=== PATIENT | male | born 1970 | race Caucasian/White ===

== ENCOUNTER 2021-05-08 11:31 | Emergency (ER) | payer SELFPAY ==
--- NOTE | 2021-05-08 11:51 | Emergency Department Report ---
ED Neuro Deficit HPI - General Chief Complaint: Neuro Symptoms/Deficit Stated Complaint: Numbness in left arm, bilat legs Time Seen by Provider: 05/08/21 11:46 Source: patient, EMS Mode of arrival: Stretcher Limitations: No Limitations - History of Present Illness Initial Comments: 51-year-old male with a past medical history of hypertension and smoking presents to the hospital with neurologic symptoms. 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 Patient denies any shortness of breath, nausea, vomiting, diaphoresis, or headache. Patient initially thought that he had numbness secondary to his position while driving. 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 He denies chest pressure. He complains of persistent numbness at this time. He denies pleuritic chest pain, calf tenderness, or leg edema. Patient has steady gait with a negative Spiro score as per EMS. Patient admits to drinking 3 beers yesterday but denies being an alcoholic or drinking alcohol daily. Patient is not currently on hypertensive medication and instead is making dietary changes - Related Data Home Medications: Previous Rx's Medication Instructions Recorded Last Taken Type Aspirin EC [Ecotrin] 325 mg PO QDAY #30 tablet. 05/08/21 Unknown Rx Cyanocobalamin (Vitamin B-12) 500 mcg PO DAILY #30 05/08/21 Unknown Rx [Vitamin B-12] Folic Acid 1 mg PO DAILY #30 05/08/21 Unknown Rx Thiamine [Vitamin B-1] 100 mg PO QDAY #30 tablet 05/08/21 Unknown Rx Allergies/Adverse Reactions: Allergies Allergy/AdvReac Type Severity Reaction Status Date / Time No Known Allergies Allergy Verified 05/08/21 15:20 ED Review of Systems ROS: Stated complaint: Numbness in left arm, bilat legs Other details as noted in HPI Comment: All other systems reviewed and negative ED Past Medical Hx - Past Medical History Previous Medical History?: Yes Hx Hypertension: Yes - Surgical History Additional Surgical History: gastric bypass - Medications Home Medications: Home Medications Medication Instructions Recorded Confirmed Last Taken Type Aspirin EC [Ecotrin] 325 mg PO QDAY #30 tablet. 05/08/21 Unknown Rx Cyanocobalamin (Vitamin B-12) 500 mcg PO DAILY #30 05/08/21 Unknown Rx [Vitamin B-12] Folic Acid 1 mg PO DAILY #30 05/08/21 Unknown Rx Thiamine [Vitamin B-1] 100 mg PO QDAY #30 tablet 05/08/21 Unknown Rx ED Neuro Physical Exam - General Limitations: Physical Limitation Suspected Stroke: Yes - Neurological Exam Neurological exam: Present: alert - NIHSS Assessment Interval: Baseline 1a. Level of Consciousness: alert/keenly responsive 1b. LOC Questions: answers both correctly 1c. LOC Commands: performs tasks correctly 2. Best Gaze: normal 3. Visual: no visual loss 4. Facial Palsy: normal symmetrical movement 5b. Motor Arm Right: no drift 5a. Motor Arm Left: no drift 6a. Motor Leg Left: no drift 6b. Motor Leg Right: no drift 7. Limb Ataxia: absent 8. Sensory: mild/moderate sensory loss 9. Best Language: no aphasia 10. Dysarthria: normal 11. Extinction/Inattention: no abnormality Total Score: 1 Stroke Severity: Minor Stroke - Other Other exam information: General: No acute distress Head: Atraumatic Eyes: normal appearance ENT: Moist mucous membranes Neck: Normal appearance, no midline tenderness Chest: Clear to auscultation bilaterally CV: Regular rate and rhythm Abdomen: Soft, normal bowel sounds, nontender, nondistended, no rebound or guarding Back: Normal inspection Extremity: Normal inspection, full range of motion Neuro: Alert O x 3, no facial asymmetry, speech clear, [id number] function affected by mild tremor noted. 5/5 upper lower extremity strength without drift. Decreased sensation to light touch left arm and bilateral lower legs. Psych: Appropriate behavior Skin: No rash ED Course Vital Signs 05/08/21 05/08/21 05/08/21 07:56 08:00 08:16 Temperature Pulse Rate 79 80 77 Respiratory 14 9 L 13 Rate Blood Pressure 125/76 125/76 123/79 Blood Pressure [Left] O2 Sat by Pulse 100 100 100 Oximetry 05/08/21 05/08/21 05/08/21 08:30 11:36 11:37 Temperature 98.2 F Pulse Rate 82 90 Respiratory 18 18 16 Rate Blood Pressure 120/76 Blood Pressure 163/111 [Left] O2 Sat by Pulse 98 100 98 Oximetry 05/08/21 05/08/21 05/08/21 11:56 12:01 12:21 Temperature Pulse Rate 67 68 72 Respiratory 18 21 16 Rate Blood Pressure 116/76 137/83 135/83 Blood Pressure [Left] O2 Sat by Pulse 96 Oximetry 05/08/21 05/08/21 05/08/21 12:31 12:45 13:01 Temperature Pulse Rate 67 65 83 Respiratory 17 12 15 Rate Blood Pressure 135/83 135/83 139/82 Blood Pressure [Left] O2 Sat by Pulse 98 98 98 Oximetry 05/08/21 05/08/21 05/08/21 13:15 13:31 13:45 Temperature Pulse Rate 62 70 65 Respiratory 13 18 17 Rate Blood Pressure 139/82 139/82 139/82 Blood Pressure [Left] O2 Sat by Pulse 99 97 96 Oximetry 05/08/21 05/08/21 05/08/21 14:01 14:15 14:31 Temperature Pulse Rate 58 L 53 L 58 L Respiratory 17 16 16 Rate Blood Pressure 132/81 132/81 132/81 Blood Pressure [Left] O2 Sat by Pulse 96 97 98 Oximetry 05/08/21 05/08/21 14:45 15:01 Temperature Pulse Rate 55 L 55 L Respiratory 20 21 Rate Blood Pressure 132/81 126/82 Blood Pressure [Left] O2 Sat by Pulse 97 96 Oximetry - Lab Data Result diagrams: 05/08/21 11:50 05/08/21 11:50 Lab Results 05/08/21 05/08/21 05/08/21 Range/Units 11:50 11:50 11:50 WBC 7.4 (4.5-11.0) K/mm3 RBC 4.57 (3.65-5.03) M/mm3 Hgb 11.6 L (11.8-15.2) gm/dl Hct 36.9 (35.5-45.6) % MCV 81 L (84-94) fl MCH 26 L (28-32) pg MCHC 32 (32-34) % RDW 17.8 H (13.2-15.2) % Plt Count 331 (140-440) K/mm3 Lymph % (Auto) 22.8 (13.4-35.0) % [place] % (Auto) 7.9 H (0.0-7.3) % Eos % (Auto) 4.0 (0.0-4.3) % Baso % (Auto) 1.0 (0.0-1.8) % Lymph # (Auto) 1.7 (1.2-5.4) K/mm3 [place] # (Auto) 0.6 (0.0-0.8) K/mm3 Eos # (Auto) 0.3 (0.0-0.4) K/mm3 Baso # (Auto) 0.1 (0.0-0.1) K/mm3 Seg Neutrophils % 64.3 (40.0-70.0) % Seg Neutrophils # 4.8 (1.8-7.7) K/mm3 PT 12.5 (12.2-14.9) Sec. INR 0.85 L (0.87-1.13) APTT 27.7 (24.2-36.6) Sec. Thrombin Time 15.7 (15.1-19.6) Sec. Sodium 139 (137-145) mmol/L Potassium 4.6 (3.6-5.0) mmol/L Chloride 103.1 (98-107) mmol/L Carbon Dioxide 24 (22-30) mmol/L Anion Gap 17 mmol/L BUN 8 L (9-20) mg/dL Creatinine 0.7 L (0.8-1.3) mg/dL Estimated GFR > 60 ml/min BUN/Creatinine Ratio 11 % Glucose 100 (75-100) mg/dL POC Glucose (70-105) mg/dL Calcium 9.2 (8.4-10.2) mg/dL Magnesium 2.00 (1.7-2.3) mg/dL Total Bilirubin 0.20 (0.1-1.2) mg/dL AST 28 (5-40) units/L ALT 26 (7-56) units/L Alkaline Phosphatase 63 (35-129) units/L Total Creatine Kinase 80 (55-170) units/L CK-MB (CK-2) 1.4 (0.0-4.0) ng/mL CK-MB (CK-2) Rel Index 1.7 (0-4) Troponin T < 0.010 (0.00-0.029) ng/mL Total Protein 6.9 (6.3-8.2) g/dL Albumin 4.1 (3.9-5) g/dL Albumin/Globulin Ratio 1.5 % 03/03/22 03/03/22 Range/Units 12:02 14:47 WBC (4.5-11.0) K/mm3 RBC (3.65-5.03) M/mm3 Hgb (11.8-15.2) gm/dl Hct (35.5-45.6) % MCV (84-94) fl MCH (28-32) pg MCHC (32-34) % RDW (13.2-15.2) % Plt Count (140-440) K/mm3 Lymph % (Auto) (13.4-35.0) % [place] % (Auto) (0.0-7.3) % Eos % (Auto) (0.0-4.3) % Baso % (Auto) (0.0-1.8) % Lymph # (Auto) (1.2-5.4) K/mm3 [place] # (Auto) (0.0-0.8) K/mm3 Eos # (Auto) (0.0-0.4) K/mm3 Baso # (Auto) (0.0-0.1) K/mm3 Seg Neutrophils % (40.0-70.0) % Seg Neutrophils # (1.8-7.7) K/mm3 PT (12.2-14.9) Sec. INR (0.87-1.13) APTT (24.2-36.6) Sec. Thrombin Time (15.1-19.6) Sec. Sodium (137-145) mmol/L Potassium (3.6-5.0) mmol/L Chloride (98-107) mmol/L Carbon Dioxide (22-30) mmol/L Anion Gap mmol/L BUN (9-20) mg/dL Creatinine (0.8-1.3) mg/dL Estimated GFR ml/min BUN/Creatinine Ratio % Glucose (75-100) mg/dL POC Glucose 96 (70-105) mg/dL Calcium (8.4-10.2) mg/dL Magnesium (1.7-2.3) mg/dL Total Bilirubin (0.1-1.2) mg/dL AST (5-40) units/L ALT (7-56) units/L Alkaline Phosphatase (35-129) units/L Total Creatine Kinase (55-170) units/L CK-MB (CK-2) (0.0-4.0) ng/mL CK-MB (CK-2) Rel Index (0-4) Troponin T < 0.010 (0.00-0.029) ng/mL Total Protein (6.3-8.2) g/dL Albumin (3.9-5) g/dL Albumin/Globulin Ratio % - EKG Data -: EKG Interpreted by Ri EKG shows normal: sinus rhythm, ST-T waves (no stemi) Rate: normal - Radiology Data Radiology results: report reviewed NONENHANCED CT SCAN OF THE HEAD: INDICATION / CLINICAL INFORMATION: 51 years Male; CODE STROKE CALL [phone]. TECHNIQUE: Routine CT head without contrast. All CT scans at this location are performed using CT dose reduction for ALARA by means of automated exposure control. COMPARISON: None. FINDINGS: BRAIN / INTRACRANIAL CONTENTS: No intracerebral hemorrhage or stroke mimics No acute hemorrhage, mass effect, midline shift, hydrocephalus, or acute, large territorial infarct. No chronic infarct or focal atrophy. Normal brain volume and ventricular/sulcal size for age. No significant white matter abnormality. CRANIOCERVICAL JUNCTION: No significant abnormality. ORBITS: No significant abnormality of visualized orbits. SINUSES / MASTOIDS: No significant abnormality of the visualized paranasal sinuses or mastoid air cells. ADDITIONAL FINDINGS: Focal area of calcification in the foramen of Monro Calcification in the choroid plexus Nonobstructive colloid cyst cyst IMPRESSION: No intracerebral hemorrhage; no stroke mimics No CT findings to suggest acute/subacute territorial infarction CTA NECK WITH CONTRAST TECHNIQUE: Routine CTA of the neck was performed. 3-D/MIP reformats were postprocessed. Percentage stenosis is determined by direct quantitative measurements of diseased internal carotid artery diameter compared with normal distal internal carotid artery reference segments or by criteria similar to NASCET where applicable.All CT scans at this location are performed using CT dose reduction for ALARA by means of automated exposure control CONTRAST: 100 ml of Omnipaque 350 FINDINGS: Aortic arch: No significant abnormality. Cervical vertebral arteries: No significant abnormality. Common carotid arteries: No significant abnormality. Carotid bifurcations: Normal bilaterally Cervical internal carotid arteries: No significant abnormality. Additional findings: None. IMPRESSION: CTA HEAD WITH CONTRAST FINDINGS: CTA Head: Intracranial vertebral arteries: No significant abnormality. Basilar artery: No significant abnormality. Posterior cerebral arteries: No significant abnormality. Intracranial internal carotid arteries: No significant abnormality. Anterior cerebral arteries: No significant abnormality. Middle cerebral arteries: No significant abnormality. Dural venous sinuses:Not optimally opacified. No significant abnormality. Additional findings: None. IMPRESSION: 1. No significant abnormality. - Medical Decision Making 51-year-old male presents to the hospital with neurologic symptoms and elevated high blood pressure. Patient evaluated by neurology. Patient a stat CT head and CT angiogram that were unremarkable. Admission for further neurologic work- up and imaging recommended. Patient was evaluated by the hospitalist and deemed a candidate for discharge. During ED stay patient's blood pressure remained in normal limit without acute intervention. Patient was provided prescriptions by the hospitalist. Please refer to hospitalist note outpatient follow-up will be provided Critical Care Time: Yes Critical care attestation.: If time is entered above; I have spent that time in minutes in the direct care of this critically ill patient, excluding procedure time. ED Disposition Clinical Impression: Numbness, Elevated blood pressure reading Disposition: ADMITTED INPATIENT Is pt being admited?: Yes Condition: Stable Instructions: Hypertension (ED), Paresthesia, Hypertension, Adult, [id number] Additional Instructions: Your blood pressure was initially elevated but improved without any medications. Continue to monitor your blood pressure at home. Take the medication as prescribed. Follow-up with your doctor or doctor/clinic provided. Return if symptoms worsen as indicated by your discharge instructions. Prescriptions: Aspirin EC [Ecotrin] 325 mg PO QDAY #30 tablet. Folic Acid 1 mg PO DAILY #30 Thiamine [Vitamin B-1] 100 mg PO QDAY #30 tablet Cyanocobalamin (Vitamin B-12) [Vitamin B-12] 500 mcg PO DAILY #30 Referrals: JASWINDER BARRERA MD [Staff Physician] - 3-5 Days [facility] [Provider Group] - 3-5 Days Time of Disposition: 13:08
[2021-05-08 12:09] LABS: Basophils # (Auto) 0.1 K/mm3 (0.0-0.1); Eosinophils # (Auto) 0.3 K/mm3 (0.0-0.4); Hematocrit 36.9 % (35.5-45.6); Hemoglobin 11.6 gm/dl (11.8-15.2); Lymphocytes # (Auto) 1.7 K/mm3 (1.2-5.4); Lymphocytes % (Auto) 22.8 % (13.4-35.0); Mean Corpuscular HGB Conc 32 % (32-34); Mean Corpuscular Volume 81 fl (84-94); Monocytes # (Auto) 0.6 K/mm3 (0.0-0.8); Monocytes % (Auto) 7.9 % (0.0-7.3); Platelet Count 331 K/mm3 (140-440); Red Blood Count 4.57 M/mm3 (3.65-5.03); Red Cell Distribution Width 17.8 % (13.2-15.2)
[2021-05-08 12:15] LABS: INR 0.85 (0.87-1.13)
[2021-05-08 12:16] LABS: Partial Thromboplastin Time 27.7 Sec. (24.2-36.6); Thrombin Time 15.7 Sec. (15.1-19.6)
--- NOTE | 2021-05-08 12:29 | Emergency Department Report ---
ED Neuro Deficit HPI - General Chief Complaint: Neuro Symptoms/Deficit Stated Complaint: Numbness in left arm, bilat legs Time Seen by Provider: 05/08/21 11:46 Source: patient, EMS Mode of arrival: Stretcher Limitations: Physical Limitation - History of Present Illness Initial Comments: [facility] Consult Note # Demographics Consult Type: Acute Stroke Level 1 (0-4.5 hrs) Patient Location: Emergency Room First Name: Wicho Last Name: Leandro Date of : 1970 Age: 51 Gender: Male Facility: [facility] Time of Initial Page ( Time): 05/08/2021, 11:49 Time of Return Call ( Time): 05/08/2021, 11:50 # HPI Chief Complaint: numbness Handedness: Right History: The patient reported that from his knees down he felt numbness, as well as the left arm & left cheek. He also reported unsteadiness "& not myself." He reported continued symptoms in the legs. He denied previous episodes. There was no unilateral convulsions, mouth trauma, or sphincter incontinence. Last Known Normal: I have collected independent history specific to time last normal or last known well. We have collaborated with the provider and at this time, we have the most current timeline with the information that is available. 10am Duration: constant minutes hours Possible Thrombolytic candidate: not on warfarin or NOACs no intracranial hemorrhage history no recent major surgery Associated Symptoms: no double vision no headache no neck pain no vision changes Quality: numbness no weakness # Scores Time of exam and NIHSS ( Time): 05/08/2021, 11:52 Level of Consciousness 1a: [0] = Alert; keenly responsive LOC Questions 1b: [0] = Answers both questions correctly LOC Commands 1c: [0] = Performs both tasks correctly Best Gaze 2: [0] = Normal Visual 3: [0] = No visual loss Facial Palsy 4: [0] = Normal symmetrical movements Motor Arm Left 5a: [0] = No drift Motor Arm Right 5b: [0] = No drift Motor Leg Left 6a: [0] = No drift Motor Leg Right 6b: [0] = No drift Limb Ataxia 7: [0] = Absent Sensory 8: [0] = Normal Best Language 9: [0] = No aphasia Dysarthria 10: [0] = Normal Extinction and Inattention 11: [0] = No abnormality NIHSS Total: 0 Modified Bollinger Scale (mRS) pre-stroke: [0] = No Symptoms Modified Benjamin Scale total: 0 VAN Screening: Negative # Exam SBP: 137 DBP: 83 Mental Status: awake alert and oriented x 3 follows commands # ROS Constitutional: no fever Pulmonary: no shortness of breath Cardiovascular: no chest pain # PMH-FH-SH Past Medical History: denies Social History: smoker Medications: denies Allergies: NKDA # Data Glucose: 96 # Assessment Impression: Numbness of unclear etiology, with the anatomic distribution suggesting a multifocal process if organic # Plan Thrombolytic/Intervention: NOT IV Thrombolysis or IA Intervention candidate Thrombolytic Exclusion (< 3 hour window): family/ patient refusal NIHSS = 0 Thrombolytic Exclusion: After discussing the risks & benefits, the patient elected not to pursue thrombolytic therapy. Target Blood Pressure: SBP < 220 Labs: B12 CBC comprehensive metabolic panel ESR hemoglobin A1c lipid panel TSH urine drug screen ua Imaging: (urgency: STAT): CT Head without contrast CT Angiogram Head and CT Angiogram Neck Imaging: (urgency: routine): MRI Brain with AND without contrast MRI C spine Diagnostic Test: echo without bubble study Therapy/Evaluation: NPO until swallow evaluation PT/OT evaluation Medication: Would hold on starting antiplatelet therapy pending brain MRI results (i.e., evidence of ischemia, new or chronic), & probably would Additional Recommendations: Tobacco cessation counseled. ED Review of Systems ROS: Stated complaint: Numbness in left arm, bilat legs Other details as noted in HPI ED Past Medical Hx - Past Medical History Previous Medical History?: Yes Hx Hypertension: Yes - Surgical History Additional Surgical History: gastric bypass ED Neuro Physical Exam - General Limitations: Physical Limitation Suspected Stroke: No ED Course Vital Signs 05/08/21 11:37 Temperature 98.2 F Pulse Rate 90 Respiratory 16 Rate Blood Pressure 163/111 [Left] O2 Sat by Pulse 98 Oximetry - Lab Data Result diagrams: 05/08/21 11:50 Lab Results 05/08/21 05/08/21 05/08/21 Range/Units 11:50 11:50 12:02 WBC 7.4 (4.5-11.0) K/mm3 RBC 4.57 (3.65-5.03) M/mm3 Hgb 11.6 L (11.8-15.2) gm/dl Hct 36.9 (35.5-45.6) % MCV 81 L (84-94) fl MCH 26 L (28-32) pg MCHC 32 (32-34) % RDW 17.8 H (13.2-15.2) % Plt Count 331 (140-440) K/mm3 Lymph % (Auto) 22.8 (13.4-35.0) % [place] % (Auto) 7.9 H (0.0-7.3) % Eos % (Auto) 4.0 (0.0-4.3) % Baso % (Auto) 1.0 (0.0-1.8) % Lymph # (Auto) 1.7 (1.2-5.4) K/mm3 [place] # (Auto) 0.6 (0.0-0.8) K/mm3 Eos # (Auto) 0.3 (0.0-0.4) K/mm3 Baso # (Auto) 0.1 (0.0-0.1) K/mm3 Seg Neutrophils % 64.3 (40.0-70.0) % Seg Neutrophils # 4.8 (1.8-7.7) K/mm3 PT 12.5 (12.2-14.9) Sec. INR 0.85 L (0.87-1.13) APTT 27.7 (24.2-36.6) Sec. Thrombin Time 15.7 (15.1-19.6) Sec. POC Glucose 96 (70-105) mg/dL Critical care attestation.: If time is entered above; I have spent that time in minutes in the direct care of this critically ill patient, excluding procedure time. ED Disposition Clinical Impression: Numbness Disposition: 09 ADMITTED INPATIENT Is pt being admited?: Yes Condition: Stable
[2021-05-08 12:30] LABS: Creatine Kinase MB 1.4 ng/mL (0.0-4.0)
[2021-05-08 12:35] LABS: Alanine Aminotransferase 26 units/L (7-56); Albumin 4.1 g/dL (3.9-5); Blood Urea Nitrogen 8 mg/dL (9-20); Calcium 9.2 mg/dL (8.4-10.2); Hemolysis Index 5
[2021-05-08 12:36] LABS: BUN/Creatinine Ratio 11
--- NOTE | 2021-05-08 12:42 | Cat Scan Report ---
Please refer to the report of the CT scan of the head Signer Name: Nhi Sue MD Signed: 05/08/2021 12:38 PM Workstation Name: [id number]
--- NOTE | 2021-05-08 12:42 | Cat Scan Report ---
NONENHANCED CT SCAN OF THE HEAD: INDICATION / CLINICAL INFORMATION: 51 years Male; CODE STROKE CALL [phone]. TECHNIQUE: Routine CT head without contrast. All CT scans at this location are performed using CT dos e reduction for ALARA by means of automated exposure control. COMPARISON: None. FINDINGS: BRAIN / INTRACRANIAL CONTENTS: No intracerebral hemorrhage or stroke mimics No acute hemorrhage, mass effect, midline shift, hydrocephalus, or acute, large territorial infarct. No chronic infarct or focal atrophy. Normal brain volume and ventricular/sulcal size for age. No sig nificant white matter abnormality. CRANIOCERVICAL JUNCTION: No significant abnormality. ORBITS: No significant abnormality of visualized orbits. SINUSES / MASTOIDS: No significant abnormality of the visualized paranasal sinuses or mastoid air britney ls. ADDITIONAL FINDINGS: Focal area of calcification in the foramen of Monro Calcification in the choroid plexus Nonobstructive colloid cyst cyst IMPRESSION: No intracerebral hemorrhage; no stroke mimics No CT findings to suggest acute/subacute territorial infarction CTA NECK WITH CONTRAST TECHNIQUE: Routine CTA of the neck was performed. 3-D/MIP reformats were postprocessed. Percentage s tenosis is determined by direct quantitative measurements of diseased internal carotid artery diamete r compared with normal distal internal carotid artery reference segments or by criteria similar to NA SCET where applicable.All CT scans at this location are performed using CT dose reduction for ALARA b y means of automated exposure control CONTRAST: 100 ml of Omnipaque 350 FINDINGS: Aortic arch: No significant abnormality. Cervical vertebral arteries: No significant abnormality. Common carotid arteries: No significant abnormality. Carotid bifurcations: Normal bilaterally Cervical internal carotid arteries: No significant abnormality. Additional findings: None. IMPRESSION: CTA HEAD WITH CONTRAST FINDINGS: CTA Head: Intracranial vertebral arteries: No significant abnormality. Basilar artery: No significant abnormality. Posterior cerebral arteries: No significant abnormality. Intracranial internal carotid arteries: No significant abnormality. Anterior cerebral arteries: No significant abnormality. Middle cerebral arteries: No significant abnormality. Dural venous sinuses:Not optimally opacified. No significant abnormality. Additional findings: None. IMPRESSION: 1. No significant abnormality. CT scan of the head: No intracerebral hemorrhage or stroke mimics CTA of the neck: Normal carotid bifurcations CTA of the head: No large vessel occlusion CODE STROKE: Time of Communication (JAVA SOFTWARE/CDT): 11:37 AM Licensed Practitioner Receiving Report: ER physician Signer Name: Nhi Sue MD Signed: 05/08/2021 12:37 PM Workstation Name: [id number]
--- NOTE | 2021-05-08 12:58 | Cat Scan Report ---
CTA neck without and with intravenous contrast material CLINICAL HISTORY: bilateral leg and left arm numbness 100 ML OMNI 350 TECHNIQUE: Following acquisition of a timing bolus 0.625 mm thick contiguous axial scans were obtained from aort ic arch to the skull base during rapid bolus intravenous contrast infusion. In addition to evaluation of axial source images multiplanar reconstructions were produced and reviewed for this report. 3 ottoniel ne MIP reconstructions were produced and reviewed. Contrast dose report: Omnipaque 350: 100 ml, administered intravenously All CT examinations performed at this facility utilize modulated dose reduction, iterative reconstruc tion or weight-based dosing, as appropriate, to obtain a radiation dose which is as low as can reason ably be achieved. FINDINGS: Thoracic aorta:No abnormalities are identified along the course of the thoracic aorta..The origins of the great vessels have an unremarkable appearance. Brachiocephalic artery, left common carotid arter y origin and left subclavian artery all have an unremarkable appearance. Right carotid artery: Incidental note is made of moderate tortuosity of the distal R ICA. No signific ant abnormalities are seen along the course of the RCCA, at the right carotid bifurcation or along th e cervical portions of the STEVE. Left carotid artery: Incidental note is made of moderate tortuosity of the distal LICA. No additional abnormalities are noted along the course of the left common carotid artery, at the left carotid bifu rcation or along the course of the cervical segments of the LICA. Posterior circulation:The vertebral arteries have an unremarkable appearance. Both vertebral arteries contribute to the basilar artery origin. The basilar artery has an unremarkable appearance. The degree of stenosis, if any, is determined utilizing NASCET like criteria. In this case there is no indication of hemodynamically significant stenosis at the carotid bifurcations or elsewhere. Evaluation of the nonvascular soft tissue structures reveal no abnormality. There is no indication of cervical lymphadenopathy. No abnormalities are seen along the course of the airway. Visualized porti ons of the parotid glands and the submandibular salivary glands have a normal appearance. Thyroid gla nd has a normal appearance. Evaluation of the lung apices reveals no evidence of lung nodule or infil trate. Evaluation of the cervical spine revealed no significant abnormalities. IMPRESSION: 1. No indication of hemodynamically significant stenosis at the carotid bifurcations or elsewhere. Signer Name: Lukasz Harris MD Signed: 05/08/2021 12:53 PM Workstation Name: [id number]
--- NOTE | 2021-05-08 16:46 | Event Note ---
Date: 05/08/21 51 YO Male with Obesity S/P Gastric Bypass, Nicotine Dependence, alcohol dependence presents ED for evaluation. Patient states that he experienced tingling in his left arm and bilateral legs as well as "a twinge in his chest. Patient presents to [facility] for further care and evaluation. Patient seen and evaluated in the emergency department. Patient treated" with chest pain protocol. Serial cardiac enzymes EKG monitoring was unremarkable. 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 Patient medically optimized and back to usual state of health and subsequent discharged home instructed to follow-up with primary care physician within 3 to 5 days for further care and evaluation and age-appropriate screening test. General: No acute distress Head: Atraumatic Eyes: normal appearance ENT: Moist mucous membranes Neck: Normal appearance, no midline tenderness Chest: Clear to auscultation bilaterally CV: Regular rate and rhythm Abdomen: Soft, normal bowel sounds, nontender, nondistended, no rebound or guarding Back: Normal inspection Extremity: Normal inspection, full range of motion Neuro: Alert O x 3, no facial asymmetry, speech clear, [id number] function affected by mild tremor noted. 5/5 upper lower extremity strength without drift. Decreased sensation to light touch left arm and bilateral lower legs. Psych: Appropriate behavior Skin: No rash
[2021-05-08 18:01] VITALS: BP 136/88
--- NOTE | 2021-05-09 17:31 | Electrocardiograph Report ---
[facility] Test Date: 2021-05-08 Test Time: 12:41:52 Pat Name: Wicho Reeves Department: Room: Gender: M Painter Chassis: TIMMY : 1970 Requested By: AYAAN MARMOLEJO Order Number: [id number] Reading MD: Kuldip Davies Measurements Intervals Lester Rate: 65 P: 24 GA: 193 QRS: 49 QRSD: 89 T: 51 QT: 424 QTc: 440 Interpretive Statements Sinus rhythm No previous ECG available for comparison Electronically Signed On 05-09-2021 17:31:22 EST by Kuldip Davies
== END 2021-05-08 18:01 | disposition home or self-care (01) ==
LOC: ED 11:31
DX: R20.2 Paresthesia of skin (principal); I10 Essential (primary) hypertension
CPT/HCPCS: 36415; 70450; 70496; 70498; 80053; 82550; 82553; 82962; 83735; 84484; 85025; 85610; 85670; 85730; 93005; 93010; 99284; Q9967